=== PATIENT | male | born 1990 | race Caucasian/White ===

== ENCOUNTER 2020-06-20 21:35 | Emergency (ER) | payer BC ==
[~2020-06-20] VITALS: Ht 185.4 cm; Wt 102.0 kg
[2020-06-20 21:37] VITALS: BP 160/98
[2020-06-20 23:14] LABS: BASOPHILS % 0.4 % (0.0-2.0); EOSINOPHILS % 0.7 % (0.0-5.0); HEMOGLOBIN. 14.2 g/dL (14.0-18.0); LYMPHOCYTES % 9.6 % (20.0-50.0); MEAN CORPUSCULAR HEMOGLOBIN 28.1 pg (28.0-32.0); MEAN CORPUSCULAR VOLUME 83.2 fL (80.0-94.0); MEAN PLATELET VOLUME 9.5 fl (7.4-10.4); MONOCYTES % 6.4 % (2.0-8.0); NEUTROPHILS % 82.9 % (40.0-76.0); PLATELET 222 x1000/uL (130-400); RED BLOOD CELL COUNT 5.05 mill/uL (4.7-6.1)
[2020-06-20 23:22] LABS: CHLORIDE 106 mEq/L (98-107)
== END 2020-06-21 00:04 | disposition home or self-care (01) ==
LOC: ER 21:35
DX: R00.2 Palpitations (principal); F41.9 Anxiety disorder, unspecified
CPT/HCPCS: 36415; 71045; 80053; 84443; 84484; 85025; 85379; 93005; 99285